=== PATIENT | female | born 1975 | race Caucasian/White ===

== ENCOUNTER → 2017-07-08 | Outpatient (CLI) | payer BC ==
--- NOTE | 2017-07-10 08:02 | MM ---
Reason for exam: screening (asymptomatic). Last mammogram was performed 4 years and 1 month ago. History: Took hormonal contraceptives for 2 years. Physical Findings: A clinical breast exam by your physician is recommended on an annual basis and results should be correlated with mammographic findings. MG 3D Screening Mammo W/Cad Bilateral CC and MLO view(s) were taken. Prior study comparison: June 14, 2013, bilateral digital screening mammo w/CAD. The breast tissue is heterogeneously dense. This may lower the sensitivity of mammography. No significant changes when compared with prior studies. ASSESSMENT: Negative, BI-RAD 1 RECOMMENDATION: Routine screening mammogram of both breasts in 1 year.
== END | disposition home or self-care (01) ==
LOC: RADMAMWWP 13:07
PROVIDERS: ATTEND Family Medicine
DX: Z12.31 Encounter for screening mammogram for malignant neoplasm of breast (principal)
CPT/HCPCS: 77063; G0202

== ENCOUNTER → 2018-09-22 | Outpatient (CLI) | payer BC ==
--- NOTE | 2018-09-23 10:58 | MM ---
Reason for exam: screening (asymptomatic). Last mammogram was performed 1 year and 2 months ago. History: Took hormonal contraceptives for 2 years. Physical Findings: A clinical breast exam by your physician is recommended on an annual basis and results should be correlated with mammographic findings. MG 3D Screening Mammo W/Cad Bilateral CC and MLO view(s) were taken. Prior study comparison: July 08, 2017, bilateral MG 3d screening mammo w/cad. The breast tissue is heterogeneously dense. This may lower the sensitivity of mammography. No significant changes when compared with prior studies. ASSESSMENT: Negative, BI-RAD 1 RECOMMENDATION: Routine screening mammogram of both breasts in 1 year. Manage on a clinical basis with regard to right breast pain.
== END ==
LOC: RADMAMWWP 07:59
PROVIDERS: ATTEND Obstetrics & Gynecology
DX: Z12.31 Encounter for screening mammogram for malignant neoplasm of breast (principal)
CPT/HCPCS: 77063; 77067

== ENCOUNTER → 2019-11-09 | Outpatient (CLI) | payer BC ==
--- NOTE | 2019-11-10 11:17 | MM ---
Reason for exam: screening (asymptomatic). Last mammogram was performed 1 year and 2 months ago. History: Took hormonal contraceptives for 2 years. Physical Findings: A clinical breast exam by your physician is recommended on an annual basis and results should be correlated with mammographic findings. MG 3D Screening Mammo W/Cad Bilateral CC and MLO view(s) were taken. Prior study comparison: September 22, 2018, bilateral MG 3d screening mammo w/cad. July 08, 2017, bilateral MG 3d screening mammo w/cad. The breast tissue is heterogeneously dense. This may lower the sensitivity of mammography. Focal asymmetry upper outer left breast. This finding is changed when compared with previous exams. ASSESSMENT: Incomplete: need additional imaging evaluation, BI-RAD 0 RECOMMENDATION: Special view mammogram of the left breast. If lesion persists on supplemental views, image directed ultrasound is recommended. [facility] will attempt to contact patient to return for supplemental views and ultrasound if indicated.
== END | disposition home or self-care (01) ==
LOC: RADMAMWWP 12:24
PROVIDERS: ATTEND Obstetrics & Gynecology
DX: Z12.31 Encounter for screening mammogram for malignant neoplasm of breast (principal)
CPT/HCPCS: 77063; 77067

== ENCOUNTER → 2019-11-17 | Outpatient (CLI) | payer BC ==
--- NOTE | 2019-11-18 08:47 | MM ---
Reason for exam: additional evaluation requested from abnormal screening. Last mammogram was performed less than 1 month ago. History: Took hormonal contraceptives for 2 years. Physical Findings: Nurse did not find any significant physical abnormalities on exam. MG 3D Work Up W/Cad LT CC and MLO view(s) were taken of the left breast. Prior study comparison: November 09, 2019, bilateral MG 3d screening mammo w/cad. September 22, 2018, bilateral MG 3d screening mammo w/cad. The breast tissue is heterogeneously dense. This may lower the sensitivity of mammography. The previously seen abnormality resolves on additional views and appears as fibroglandular tissue compatible with summation. Left upper outer quadrant asymmetries appear stable from 2017. These results were verbally communicated with the patient and result sheet given to the patient on 11/17/19. ASSESSMENT: Benign, BI-RAD 2 RECOMMENDATION: Return to routine screening mammogram schedule for both breasts.
== END | disposition home or self-care (01) ==
LOC: RADMAMWWP 14:52
PROVIDERS: ATTEND Obstetrics & Gynecology
DX: R92.8 Other abnormal and inconclusive findings on diagnostic imaging of breast (principal)
CPT/HCPCS: 77061; 77065

== ENCOUNTER → 2020-12-21 | Outpatient (CLI) | payer BC ==
--- NOTE | 2020-12-25 11:47 | MM ---
Reason for exam: screening (asymptomatic). Last mammogram was performed 1 year and 1 month ago. History: Took hormonal contraceptives for 2 years. Physical Findings: A clinical breast exam by your physician is recommended on an annual basis and results should be correlated with mammographic findings. MG 3D Screening Mammo W/Cad Bilateral CC and MLO view(s) were taken. Prior study comparison: November 17, 2019, left breast MG 3d work up w/cad LT. November 09, 2019, bilateral MG 3d screening mammo w/cad. The breast tissue is heterogeneously dense. This may lower the sensitivity of mammography. There is no discrete abnormality. ASSESSMENT: Negative, BI-RAD 1 RECOMMENDATION: Routine screening mammogram of both breasts in 1 year.
== END | disposition home or self-care (01) ==
LOC: RADMAMWWP 13:07
PROVIDERS: ATTEND Obstetrics & Gynecology
DX: Z12.31 Encounter for screening mammogram for malignant neoplasm of breast (principal)
CPT/HCPCS: 77063; 77067

== ENCOUNTER → 2021-12-24 | Outpatient (CLI) | payer BC ==
--- NOTE | 2021-12-25 11:48 | MM ---
Reason for exam: screening (asymptomatic). Last mammogram was performed 1 year ago. History: Took hormonal contraceptives for 2 years. Physical Findings: A clinical breast exam by your physician is recommended on an annual basis and results should be correlated with mammographic findings. MG 3D Screening Mammo W/Cad Bilateral CC and MLO view(s) were taken. Prior study comparison: December 21, 2020, bilateral MG 3d screening mammo w/cad. November 17, 2019, left breast MG 3d work up w/cad LT. The breast tissue is heterogeneously dense. This may lower the sensitivity of mammography. There is no discrete abnormality. ASSESSMENT: Negative, BI-RAD 1 RECOMMENDATION: Routine screening mammogram of both breasts in 1 year.
== END | disposition home or self-care (01) ==
LOC: RADMAMWWP 08:54
PROVIDERS: ATTEND Family Medicine
DX: Z12.31 Encounter for screening mammogram for malignant neoplasm of breast (principal)
CPT/HCPCS: 77063; 77067

== ENCOUNTER → 2022-01-15 | Outpatient (CLI) | payer BC ==
--- NOTE | 2022-01-15 14:53 | P.SLEEP ---
History of Present Illness H&P Date: 01/15/22 this is a very pleasant 46-year-old. Patient is coming in for a reevaluation regarding obstructive sleep apnea. Note that the patient was given the diagnosis obstructive sleep apnea approximately 7-8 years ago. At that time, she was 39 years of age and she was and during her 31st week of gestation, the patient was given a sleep study that showed mild obstructive sleep apnea with an AHI of 10. noted the patient had interval worsening of her sleep apnea during REM sleep with an AHI of 40 during REM and her minimal pulse ox was 84%. Subsequently, the patientas given CPAP therapy at a pressure of 6 cm of water. The patient used them machine briefly and over the past 6-7 years, she has not used the machine. Her machine is functional. I checked the machine today and I started the patient has used her machine only 7 out of the past around 365 days and on the days when she hadthe machine on, she averaged around 8.8 hours of sleep and her AHI was down to 2.5. Nevertheless, she did not see any improvement in her symptoms as the patient does not have any major hypersomnia and sleepiness during the day. For now, she is having more so occasional symptoms of insomnia. She typically goes to methadone 10:30 PM, wakes at 6 AM in the morning. On weekends, she tried to sleep slightly longer. She does not take any naps during the day. She sleeps on her back. She does not wake up frequently in the middle of the night. At times, she has difficulties initiating sleep and this is related to some increased anxiety and stress. No sleep paralysis. No hallucinations. No cataplexy. She is fully functional during the day and she carries an [place] score of 3. Note that whil e the origin study was done, the patient used to weigh around 230 pounds and back then she was . Current weight is down to 186. She has mild hypertension which is well-controlled. No 70 coronary artery disease. No other major comorbidities. She denies waking up choking or gasping for air. Occasionally she grinds her teeth. No nocturia. No claustrophobia. No head trauma. No substance abuse. Review of Systems All systems: negative Eyes: denies as per HPI, denies blurred vision, denies bulging eye, denies decreased vision, denies diplopia, denies discharge, denies dry eye, denies irritation, denies itching, denies pain, denies photophobia, denies loss of peripheral vision, denies loss of vision, denies tunnel vision/blind spots Ears: deny: decreased hearing, ear discharge, earache, tinnitus Ears, nose, mouth and throat: Denies headache, Denies sore throat Breasts: absent: as per HPI, change in shape, gynecomastia, masses, nipple discharge, pain, skin changes, swelling Cardiovascular: Reports as per HPI Respiratory: Reports as per HPI Gastrointestinal: Reports as per HPI Genitourinary: Reports as per HPI Menstruation: Reports amenorrhea Musculoskeletal: Reports as per HPI Musculoskeletal: absent: ankle pain, ankle stiffness, ankle swelling Integumentary: Reports as per HPI Neurological: Reports as per HPI Psychiatric: Reports as per HPI Endocrine: Reports as per HPI Hematologic/Lymphatic: Reports as per HPI Allergic/Immunologic: Reports as per HPI Past Medical History Additional Past Medical History / Comment(s): Sleep apneaand this was diagnosed back in 2014 and at time of the diagnoses the patient was . Her AHI was 10. She also has history of tachycardia-bradycardia, and the patient is currently not having any symptoms.she has hypertension, BP is under good control. Obstetric history: She has had 5 vaginal deliveries and 3 spontaneous abortions. This is her ninth and she has had care with me since 10 weeks. A+, abs neg, Rub Imm, RPR NR, Hep B neg, normal anatomy US. normal 1hr GTT. She has been followed with NSTs and growth USs for AMA. History of Any Multi-Drug Resistant Organisms: None Reported Additional Past Surgical History / Comment(s): pyloric stenosis as 1972, right elbow surgical orthopedic repair 1997 Past Psychological History: Depression Additional Psychological History / Comment(s): states hx of some depression but not associatred with deliveries. discussed ppd and evals as needed. verb underst Past Alcohol Use History: None Reported Past Drug Use History: None Reported - Past Family History Mother Additional Family Medical History / Comment(s): mother- sleep apnea and vent tachycard., brother also vent tachycardia Medications and Allergies Home Medications and Allergies Comment(s): labetalol 100 mg 2 tablets a day Home Medications Medication Instructions Recorded Confirmed Type Vit No.124/Iron/Folic 1 tab PO DAILY 04/10/15 04/21/15 History [ Vitamin Tablet] Calcium/Magnesium/Zinc 01/24/15 01/24/15 History [Kbkukoc-Nddlhoyio-Eizr Tablet] Allergies Allergy/AdvReac Type Severity Reaction Status Date / Time No Known Allergies Allergy Verified 01/13/15 11:44 Physical Exam BP is 127/80 with a pulse of 75 respirations 16 and temperature 97.2 and the patient has a saturation of 90% on room air oxygen, her [place] score is at 3, Conference is 15 inches with a body mass index of 30.7 and the temperature is 97.2F and weight is 186 pounds with a height of 5 feet and 5 inches. Gen. appearance the patient is calm and comfortable not in acute distress The patient appeared well nourished and normally developed. Vital signs as documented. Head exam is unremarkable. No scleral icterus or corneal arcus noted. Neck is without jugular venous distension, thyromegaly, or carotid bruits. Carotid upstrokes are brisk bilaterally.the patient has a slight overbite noted on examination. Mallampati class III. Lungs are clear to auscultation and percussion. Cardiac exam reveals the PMI to be normally sized and situated. Rhythm is regular. First and second heart sounds normal. No murmurs, rubs or gallops. Abdominal exam reveals normal bowel sounds, no masses, no organomegaly and no aortic enlargement. Extremities are nonedematous and both femoral and pedal pulses are normal.Examination of the skin revealed no evidence of significant rashes, suspicious appearing nevi or other concerning lesions.Neurologically, the patient is awake and alert and the patient does not have any focal neurological deficit. Cranial nerves are essentially intact. Assessment and Plan Plan: 1 mild obstructive sleep apnea with an AHI of 10 based on a sleep study that was done in 2014. Noted at that time the patient was and [id number] week of gestation and the patient used to weigh 230 pounds. Since then, the patient has lost weight and currently she is down to 186. She has a CPAP machine at home which she hasn't been using and she has been essentially asymptomatic. No major hypersomnia or sleepiness. In fact, the patient has some mild symptoms of sleep onset insomnia. 2 hypertension 3 history of teeth grinding Plan I reviewed the old records including the original polysomnogram that was done on this patient back in 2014 and a CPAP titration I suggested stopping CPAP therapy for now I'm going to evaluate this patient was not at home sleep study to evaluate the presence and severity of sleep apnea My overall suspicion for symptomatically sleep apnea is quite low on this patient. I think is safe to hold treatment Continue optimizing sleep hygiene measures Maintain adequate sleep hygiene and sleep schedule We'll contact the patient with results of the home sleep study and further recommendations are to follow Sleep Note - Sleep Note Sleep Note: Temperature: Pulse Rate: Respiratory Rate: Blood Pressure: SpO2: Height: Weight: BMI: Neck Circumference:
== END ==
LOC: SLEEP 13:50
PROVIDERS: ATTEND Internal Medicine Critical Care Medicine
DX: G47.33 Obstructive sleep apnea (adult) (pediatric) (principal); I10 Essential (primary) hypertension; G47.63 Sleep related bruxism; F32.A Depression, unspecified
CPT/HCPCS: 99211

== ENCOUNTER → 2022-12-25 | Outpatient (CLI) | payer BC ==
--- NOTE | 2022-12-26 09:16 | MM ---
Reason for Exam: Screening (asymptomatic). Last screening mammogram was performed 12 month(s) ago. Patient History: Menarche at age 12. First Full-Term at age 19. Patient used Hormonal Contraceptives for 2 years. Last menstrual period: 11/23/2022 Risk Values: Vielka 5 year model risk: 0.8%. NCI Lifetime model risk: 7.5%. Prior Study Comparison: 11/17/2019 Left Diagnostic Mammogram, [facility]. 12/21/2020 Bilateral Screening Mammogram, [facility]. 12/24/2021 Bilateral Screening Mammogram, [facility]. Tissue Density: The breast tissue is heterogeneously dense. This may lower the sensitivity of mammography. Findings: Analyzed By CAD. There is no suspicious group of microcalcifications or new suspicious mass in either breast. Overall Assessment: Negative, BI-RAD 1 Management: Screening Mammogram of both breasts in 1 year. A clinical breast exam by your physician is recommended on an annual basis and results should be correlated with mammographic findings. Electronically signed and approved by: Lee Fernandse D.O.
== END | disposition home or self-care (01) ==
LOC: RADMAMWWP 07:46
PROVIDERS: ATTEND Family Medicine
DX: Z12.31 Encounter for screening mammogram for malignant neoplasm of breast (principal)
CPT/HCPCS: 77063; 77067

== ENCOUNTER 2023-02-27 07:22 | Day surgery (SDC) | payer BC ==
[~2023-02-27 07:22] MED LIST: LACTATED RINGERS 1,000 ML IV SCH; LIDOCAINE 1% (10MG/ML) FOR IV START INTRADERMA PRN
--- NOTE | 2023-02-27 07:44 | P.GSHP ---
History of Present Illness H&P Date: 02/27/23 CHIEF COMPLAINT: Colon screen HISTORY OF PRESENT ILLNESS: The patient is a 47-year-old female who presents for colon screen. Lower endoscopy was offered for further evaluation and management. PAST MEDICAL HISTORY: Please see list. PAST SURGICAL HISTORY: Please see list. MEDICATIONS: Please see list. ALLERGIES: Please see list. SOCIAL HISTORY: No illicit drug use FAMILY HISTORY: No reports of Crohn disease or ulcerative colitis. REVIEW OF ORGAN SYSTEMS: CONSTITUTIONAL: No reports of fevers or chills. PHYSICAL EXAM: VITAL SIGNS: Stable GENERAL: Well-developed pleasant in no acute distress. HEENT: No scleral icterus. Extraocular movements grossly intact. Moist buccal mucosa. NECK: Supple without lymphadenopathy. CHEST: Unlabored respirations. Equal bilateral excursions. CARDIOVASCULAR: Regular rate and rhythm. Distal 2+ pulses. ABDOMEN: Soft, nontender, nondistended. MUSCULOSKELETAL: No clubbing, cyanosis, or edema. ASSESSMENT: 1. Colon screen. PLAN: 1. Recommend proceeding with a lower endoscopy Past Medical History Past Medical History: Hypertension, Sleep Apnea/CPAP/BIPAP Additional Past Medical History / Comment(s): Sleep apneaand this was diagnosed back in 2014 and at time of the diagnoses the patient was . Her AHI was 10. She also has history of tachycardia-bradycardia, and the patient is currently not having any symptoms.she has hypertension, BP is under good con trol. Obstetric history: She has had 5 vaginal deliveries and 3 spontaneous abortions. This is her ninth and she has had care with ma since 10 weeks. A+, abs neg, Rub Imm, RPR NR, Hep B neg, normal anatomy US. normal 1hr GTT. She has been followed with NSTs and growth USs for AMA. History of Any Multi-Drug Resistant Organisms: None Reported Additional Past Surgical History / Comment(s): right knee arthoplasty. pyloric stenosis as 1972, orif right elbow surgical orthopedic repair 1997 Past Anesthesia/Blood Transfusion Reactions: No Reported Reaction Past Psychological History: No Psychological Hx Reported Smoking Status: Never smoker Past Alcohol Use History: None Reported Past Drug Use History: None Reported - Past Family History Mother Additional Family Medical History / Comment(s): mother- sleep apnea and vent tachycard., brother also vent tachycardia Medications and Allergies Home Medications Medication Instructions Recorded Confirmed Type Labetalol [Trandate] 100 mg PO BID 05/24/23 05/25/23 History Allergies Allergy/AdvReac Type Severity Reaction Status Date / Time No Known Allergies Allergy Verified 02/27/23 07:37
[2023-02-27 07:47] VITALS: TEMP 97.2
[2023-02-27] MEDS ORDERED: PROPOFOL 10 MG/ML 20 ML VIAL IV ONE (08:00)
[2023-02-27] MEDS ORDERED: LIDOCAINE 2% INJ 20 MG/ML (2 ML VIAL) ONE (08:00)
[2023-02-27 08:29] VITALS: RESP 16
--- NOTE | 2023-02-27 08:36 | P.PCN ---
Date of Procedure: 02/27/23 Description of Procedure: PREOPERATIVE DIAGNOSIS: Colonoscopy screening. POSTOPERATIVE DIAGNOSIS: Colonoscopy screening. OPERATION: Colonoscopy to the cecum, ileocecal valve and appendiceal orifice. SURGEON: Juani Moran MD. ANESTHESIA: MAC. INDICATIONS: The patient is a 47-year-old female who presents for colonoscopy screening. Benefits and risks were described and informed consent was obtained. DESCRIPTION OF PROCEDURE: The patient had undergone Sutab prep. The patient had been brought into the operating room and laid in the left lateral decubitus position. After adequate intravenous sedation, the rectum was examined with 2% lidocaine jelly. External hemorrhoids were encountered. The rectal tone was within normal limits. No lesions were palpated in the rectal vault. An Olympus colonoscope was advanced until the cecum, ileocecal valve and appendiceal orifice were clearly viewed. The prep was excellent. No scattered diverticulosis was encountered. No colonic polyps were found. No evidence of focal colitis was found. Retroflexion of the scope demonstrated grade 2 internal hemorrhoids without active bleeding or inflammation. The colon was desufflated. The patient had tolerated the procedure well. Withdrawal time was over 6 minutes. FINDINGS: Aronchick preparation quality scale (1-5) Internal hemorrhoids, grade 2 External prolapsed hemorrhoids, grade 2 No arteriovenous malformations. No adenomatous polyps. No focal colitis. No scattered diverticulosis was encountered. RECOMMENDATIONS: Lower endoscopy in 2032 Plan - Discharge Summary Discharge Rx Participant: No New Discharge Prescriptions: Continue Labetalol [Trandate] 100 mg PO BID Discharge Medication List Labetalol [Trandate] 100 mg PO BID 02/26/23 [History] Follow up Appointment(s)/Referral(s): Juani Moran MD [STAFF PHYSICIAN] - As Needed Patient Instructions/Handouts: Moderate Sedation (GEN) Activity/Diet/Wound Care/Special Instructions: Repeat colonoscopy years2032 Discharge Disposition: HOME SELF-CARE
[2023-02-27 08:42] VITALS: BP 122/83; PULSE 63
== END 2023-02-27 09:49 | disposition home or self-care (01) ==
LOC: ORWHC2ENDO 07:22
PROVIDERS: ATTEND Surgery Plastic and Reconstructive Surgery
DX: Z12.11 Encounter for screening for malignant neoplasm of colon (principal); K64.1 Second degree hemorrhoids; K64.4 Residual hemorrhoidal skin tags; I10 Essential (primary) hypertension; G47.33 Obstructive sleep apnea (adult) (pediatric); I48.91 Unspecified atrial fibrillation; Z98.890 Other specified postprocedural states
CPT/HCPCS: 45378; 81025; J2704; J2001

== ENCOUNTER 2023-06-03 21:54 | Emergency (ER) | payer BC ==
[2023-06-03 22:04] VITALS: TEMP 98.8
[2023-06-03] MEDS ORDERED: SODIUM CHLORIDE 0.9% 1,000 ML IV STA (22:12)
[2023-06-03] MEDS ORDERED: ONDANSETRON 4 MG/2 ML VIAL IVP STA (22:12)
[2023-06-03] MEDS ORDERED: PANTOPRAZOLE 40 MG/10 ML VIAL IVP STA (22:12)
[2023-06-03 22:41] LABS: Basophils % (A) 1 %; Eosinophils # (A) 0.2 k/uL (0-0.7); Eosinophils % (A) 2 %; HCT 39.8 % (34.0-46.0); HGB 13.5 gm/dL (11.4-16.0); Lymphocytes # (A) 1.7 k/uL (1.0-4.8); Lymphocytes % (A) 21 %; MCH 30.2 pg (25.0-35.0); MCHC 33.8 g/dL (31.0-37.0); MCV 89.3 fL (80.0-100.0); Mean Platelet Volume 7.8; Monocytes # (A) 0.6 k/uL (0-1.0); Monocytes % (A) 8 %; Neutrophils # (A) 5.5 k/uL (1.3-7.7); Neutrophils % (A) 67 %; Platelet Count 213 k/uL (150-450); RBC 4.45 m/uL (3.80-5.40); RDW 12.3 % (11.5-15.5); WBC 8.1 k/uL (3.8-10.6)
--- NOTE | 2023-06-03 22:46 | ED ---
General Adult HPI - General Chief complaint: GI Bleed Stated complaint: COVID+, Blood in stool Time Seen by Provider: 06/03/23 22:01 Source: patient, RN notes reviewed, old records reviewed Mode of arrival: ambulatory Limitations: no limitations - History of Present Illness Initial comments: Patient is a 47-year-old female with past medical history remarkable for hypertension, sleep apnea who was recently diagnosed with Covid yesterday presents emergency Department with Covid-like symptoms but also primarily for lower abdominal pain and rectal bleeding. States she noticed lower abdominal pain starting today and somewhat yesterday. Is located across bilateral lower quadrants. It is associated with diarrhea, as well as what patient wheezes bloo d per rectum. Is seeing dark red blood per rectum and a little bit of pink coloration when she wipes. Denies any painful bowel movements. His no history of intra-abdominal surgeries or acute process. Had a clean colonoscopy within the last 5 years. Denies any shortness breath, chest pain. Nurses draw his joint pain. Denies any vaginal discharge or bleeding. Denies any nausea or vomiting. Denies any urinary complaints. Is not on blood thinners. No history of clotting disorders. Presents for further evaluation at this time. - Related Data Home Medications Medication Instructions Recorded Confirmed Labetalol [Trandate] 100 mg PO BID 02/26/23 02/27/23 Allergies Allergy/AdvReac Type Severity Reaction Status Date / Time No Known Allergies Allergy Verified 06/03/23 22:04 Review of Systems ROS Statement: Those systems with pertinent positive or pertinent negative responses have been documented in the HPI. Review of Systems: CONST: Denies fever EYES: Denies blurry vision ENT: Denies nasal congestion C/V: Denies Chest pain RESP: Denies shortness of breath GI: Endorses abdominal pain : Denies dysuria SKIN: Denies rash. MSK: Denies joint pain. NEURO: Denies headache ROS Other: All systems not noted in ROS Statement are negative. Past Medical History Past Medical History: Hypertension, Sleep Apnea/CPAP/BIPAP Additional Past Medical History / Comment(s): Sleep apneaand this was diagnosed back in 2014 and at time of the diagnoses the patient was . Her AHI was 10. She also has history of tachycardia-bradycardia, and the patient is currently not having any symptoms.she has hypertension, BP is under good control. Obstetric history: She has had 5 vaginal deliveries and 3 spontaneous abortions. This is her ninth and she has had care with me since 10 weeks. A+, abs neg, Rub Imm, RPR NR, Hep B neg, normal anatomy US. normal 1hr GTT. She has been followed with NSTs and growth USs for AMA. History of Any Multi-Drug Resistant Organisms: None Reported Additional Past Surgical History / Comment(s): right knee arthoplasty. pyloric stenosis as 1972, orif right elbow surgical orthopedic repair 1997 Past Anesthesia/Blood Transfusion Reactions: No Reported Reaction Past Psychological History: No Psychological Hx Reported Smoking Status: Never smoker Past Alcohol Use History: None Reported Past Drug Use History: None Reported - Past Family History Mother Additional Family Medical History / Comment(s): mother- sleep apnea and vent tachycard., brother also vent tachycardia General Exam - General Exam Comments Initial Comments: General: Appears in no acute distress. HEAD: Normal with no signs of head trauma. EYES: PERRLA, EOMI, conjunctiva normal, no discharge. ENT: Hearing grossly intact, normal oropharynx. RESPIRATORY: Clear breath sounds bilaterally. No wheezes, rales, or rhonchi. C/V: Regular rate and rhythm. S1 and S2 auscultated, no edema, peripheral pulses 2+ and intact throughout ABD: Abdomen soft, nondistended. Mildly tender to palpation bilateral lower quadrants. No guarding. No rebound tenderness. No peritoneal signs. EXT: Normal range of motion, no obvious deformity SKIN: No rashes or lesions observed on exposed skin. NEURO: Alert and oriented 4. Limitations: no limitations Course Vital Signs 06/03/23 06/03/23 22:00 22:51 Temperature 98.8 F Pulse Rate 78 65 Respiratory 18 20 Rate Blood Pressure 136/89 131/85 O2 Sat by Pulse 98 99 Oximetry Medical Decision Making - Medical Decision Making Was pt. sent in by a medical professional or institution (, PA, WAREHOUSE LEAD, urgent care, hospital, or [facility]...) When possible be specific @ -No Did you speak to anyone other than the patient for history (EMS, parent, family, police, friend...)? What history was obtained from this source @ -No Did you review nursing and triage notes (agree or disagree)? Why? @ -I reviewed and agree with nursing and triage notes Were old charts reviewed (outside hosp., previous admission, EMS record, old EKG, old radiological studies, urgent care reports/EKG's, [facility] records)? Report findings @ -No old charts were reviewed Differential Diagnosis (chest pain, altered mental status, abdominal pain women, abdominal pain men, vaginal bleeding, weakness, fever, dyspnea, syncope, headache, dizziness, GI bleed, back pain, seizure, CVA, palpatations, mental health, musculoskeletal)? @ -Differential Abdominal Pain Women: Appendicitis, Cholecystitis, diverticulosis, ischemic bowel, pancreatitis, hepatitis, UTI, gastroenteritis, AAA, incarcerated hernia, bowel obstruction, constipation, inflammatory bowel, hepatitis, peptic ulcer disease, splenic infarction, perforated viscus, vulvitis, ovarian torsion, PID, kidney stone, pl acenta abruption, this is not meant to be an all-inclusive list EKG interpreted by me (3pts min.). @ -None done X-rays interpreted by me (1pt min.). @ -None done CT interpreted by me (1pt min.). @ -Patient's CT imaging reveals colitis but no evidence of diverticulitis or other acute intra-abdominal process. Radiology does note that there is a cyst on the pancreatic head and neoplasm cannot be excluded. They recommend a pancreatic protocol MRI MRCP for further evaluation as well as outpatient workup. U/S interpreted by me (1pt. min.). @ -None done What testing was considered but not performed or refused? (CT, X-rays, U/S, labs)? Why? @ -None What meds were considered but not given or refused? Why? @ -None Did you discuss the management of the patient with other professionals (professionals i.e. , PA, WAREHOUSE LEAD, lab, RT, psych nurse, social media specialist, rim roller operator, teacher, executive vice president and chief financial officer, case supervisor)? Give summary @ -No Was smoking cessation discussed for >3mins.? @ -No Was critical care preformed (if so, how long)? @ -No Were there social determinants of health that impacted care today? How? (Homelessness, low income, unemployed, alcoholism, drug addiction, transportation, low edu. Level, literacy, decrease access to med. care, long term, rehab)? @ -No Was there de-escalation of care discussed even if they declined (Discuss DNR or withdrawal of care, Hospice)? DNR status @ -No What co-morbidities impacted this encounter? (DM, HTN, Smoking, COPD, CAD, Ca ncer, CVA, ARF, Chemo, Hep., AIDS, mental health diagnosis, sleep apnea, morbid obesity)? @ -None Was patient admitted / discharged? Hospital course, mention meds given and route, prescriptions, significant lab abnormalities, going to OR and other pertinent info. @ -Based on the patient's presentation and physical exam, I'm concerned for ac trey abdominal process for current symptoms. Vital signs within acceptable limits. We will perform a rectal exam as well as CT and pelvis and abdominal labs. She already has known Covid and we do not need to retest her. She will be treated with with IV fluids, Zofran, Protonix. She declines analgesic medications at this time. She was in agreement with this plan. Rectal exam performed in the presence of a female staff member. Patient's rectal exam reveals an external hemorrhoid that appeared erythematous with no active bleeding. No gross blood on exam. Light brown stool. Good rectal tone. CT imaging reveals distal colitis that was uncomplicated. Patient also has a cyst in the pancreatic head for which differential includes neoplasm. Outpatient workup recommended by radiology. Patient's labs are remarkable for a normal lactic acid. She is not . Occult blood is positive. Hemoglobin within normal limits. Coags within normal limits. On reevaluation, I updated the patient results of her labs. She expressed understanding. We did discuss results of her CT imaging. She expresses understanding that she is colitis. I also discussed the pancreatic head cystic lesion finding. She expressed understanding that it worse this could be cancer and she requires outpatient workup. She'll follow-up with her PCP regarding arranging this. In regards to the patient's colitis, likely secondary to COVID- 19 infection. Recommended symptomatic care with fluid hydration, bland diet. Patient was in agreement this plan. Urine is still pending and due to the suprapubic tenderness we will wait for urinalysis prior to discharge. Urine analysis is negative. I updated the patient. I answered all questions that she had. She agreed for follow-up to revaluate the pancreatic cyst. Discussed isolation until at least 5 days after symptom onset the Covid. She was in agreement this plan. I instructed the patient to follow up with their PCP in the next 1-3 days. I explained that the patient should return to the emergency department if they e xperience any worsening symptoms. Strict return precautions were discussed with the patient. The patient expressed understanding of these instructions. I answered all questions that the patient had. The patient was discharged home in fair condition with their prescriptions and follow up information. Undiagnosed new problem with uncertain prognosis? @ -Yes, pancreatic cyst of unknown origin Drug Therapy requiring intensive monitoring for toxicity (Heparin, Nitro, Insulin, Cardizem)? @ -No Were any procedures done? @ -No Diagnosis/symptom? @ -COVID-19 infection, uncomplicated colitis, occult rectal bleeding, hemorrhoid Acute, or Chronic, or Acute on Chronic? @ -Acute Uncomplicated (without systemic symptoms) or Complicated (systemic symptoms)? @ -Complicated Side effects of treatment? @ -none Exacerbation, Progression, or Severe Exacerbation] @ -no Poses a threat to life or bodily function? @ -no Diagnosis/symptom? @ -Pancreatic cyst, possible neoplasm Acute, or Chronic, or Acute on Chronic? @ -Unknown Uncomplicated (without systemic symptoms) or Complicated (systemic symptoms)? @ -Uncomplicated Side effects of treatment? @ -[none] Exacerbation, Progression, or Severe Exacerbation] @ -[no] Poses a threat to life or bodily function? @ -Possibly yes. Requires further outpatient nonemergent workup. - Lab Data Result diagrams: 06/03/23 22:23 06/03/23 22:23 Lab Results 06/03/23 06/03/23 06/03/23 Range/Units 22:23 22:23 22:23 WBC 8.1 (3.8-10.6) k/uL RBC 4.45 (3.80-5.40) m/uL Hgb 13.5 (11.4-16.0) gm/dL Hct 39.8 (34.0-46.0) % MCV 89.3 (80.0-100.0) fL MCH 30.2 (25.0-35.0) pg MCHC 33.8 (31.0-37.0) g/dL RDW 12.3 (11.5-15.5) % Plt Count 213 (150-450) k/uL MPV 7.8 Neutrophils % 67 % Lymphocytes % 21 % Monocytes % 8 % Eosinophils % 2 % Basophils % 1 % Neutrophils # 5.5 (1.3-7.7) k/uL Lymphocytes # 1.7 (1.0-4.8) k/uL Monocytes # 0.6 (0-1.0) k/uL Eosinophils # 0.2 (0-0.7) k/uL Basophils # 0.0 (0-0.2) k/uL PT 10.4 (9.0-12.0) sec INR 1.0 (<1.2) APTT 27.9 (22.0-30.0) sec Sodium 136 L (137-145) mmol/L Potassium 4.0 (3.5-5.1) mmol/L Chloride 106 (98-107) mmol/L Carbon Dioxide 21 L (22-30) mmol/L Anion Gap 9 mmol/L BUN 11 (7-17) mg/dL Creatinine 0.60 (0.52-1.04) mg/dL Est GFR (CKD-EPI)AfAm >90 (>60 ml/min/1.73 sqM) Est GFR (CKD-EPI)NonAf >90 (>60 ml/min/1.73 sqM) Glucose 103 H (74-99) mg/dL Plasma Lactic Acid Jackson (0.7-2.0) mmol/L Calcium 8.8 (8.4-10.2) mg/dL Total Bilirubin 1.2 (0.2-1.3) mg/dL AST 25 (14-36) U/L ALT 20 (4-34) U/L Alkaline Phosphatase 54 (38-126) U/L Total Protein 7.3 (6.3-8.2) g/dL Albumin 4.3 (3.5-5.0) g/dL Amylase 43 (30-110) U/L Lipase 120 (23-300) U/L HCG, Qual Urine Color Urine Appearance (Clear) Urine pH (5.0-8.0) Ur Specific [place] (1.001-1.035) Urine Protein (Negative) Urine Glucose (UA) (Negative) Urine Ketones (Negative) Urine Blood (Negative) Urine Nitrite (Negative) Urine Bilirubin (Negative) Urine Urobilinogen (<2.0) mg/dL Ur Leukocyte Esterase (Negative) Stool Occult Blood (Negative) 06/03/23 06/03/23 06/03/23 Range/Units 22:23 22:23 22:59 WBC (3.8-10.6) k/uL RBC (3.80-5.40) m/uL Hgb (11.4-16.0) gm/dL Hct (34.0-46.0) % MCV (80.0-100.0) fL MCH (25.0-35.0) pg MCHC (31.0-37.0) g/dL RDW (11.5-15.5) % Plt Count (150-450) k/uL MPV Neutrophils % % Lymphocytes % % Monocytes % % Eosinophils % % Basophils % % Neutrophils # (1.3-7.7) k/uL Lymphocytes # (1.0-4.8) k/uL Monocytes # (0-1.0) k/uL Eosinophils # (0-0.7) k/uL Basophils # (0-0.2) k/uL PT (9.0-12.0) sec INR (<1.2) APTT (22.0-30.0) sec Sodium (137-145) mmol/L Potassium (3.5-5.1) mmol/L Chloride (98-107) mmol/L Carbon Dioxide (22-30) mmol/L Anion Gap mmol/L BUN (7-17) mg/dL Creatinine (0.52-1.04) mg/dL Est GFR (CKD-EPI)AfAm (>60 ml/min/1.73 sqM) Est GFR (CKD-EPI)NonAf (>60 ml/min/1.73 sqM) Glucose (74-99) mg/dL Plasma Lactic Acid Jackson 0.7 (0.7-2.0) mmol/L Calcium (8.4-10.2) mg/dL Total Bilirubin (0.2-1.3) mg/dL AST (14-36) U/L ALT (4-34) U/L Alkaline Phosphatase (38-126) U/L Total Protein (6.3-8.2) g/dL Albumin (3.5-5.0) g/dL Amylase (30-110) U/L Lipase (23-300) U/L HCG, Qual Not Detected Urine Color Urine Appearance (Clear) Urine pH (5.0-8.0) Ur Specific [place] (1.001-1.035) Urine Protein (Negative) Urine Glucose (UA) (Negative) Urine Ketones (Negative) Urine Blood (Negative) Urine Nitrite (Negative) Urine Bilirubin (Negative) Urine Urobilinogen (<2.0) mg/dL Ur Leukocyte Esterase (Negative) Stool Occult Blood Positive H (Negative) 06/04/23 Range/Units 00:12 WBC (3.8-10.6) k/uL RBC (3.80-5.40) m/uL Hgb (11.4-16.0) gm/dL Hct (34.0-46.0) % MCV (80.0-100.0) fL MCH (25.0-35.0) pg MCHC (31.0-37.0) g/dL RDW (11.5-15.5) % Plt Count (150-450) k/uL MPV Neutrophils % % Lymphocytes % % Monocytes % % Eosinophils % % Basophils % % Neutrophils # (1.3-7.7) k/uL Lymphocytes # (1.0-4.8) k/uL Monocytes # (0-1.0) k/uL Eosinophils # (0-0.7) k/uL Basophils # (0-0.2) k/uL PT (9.0-12.0) sec INR (<1.2) APTT (22.0-30.0) sec Sodium (137-145) mmol/L Potassium (3.5-5.1) mmol/L Chloride (98-107) mmol/L Carbon Dioxide (22-30) mmol/L Anion Gap mmol/L BUN (7-17) mg/dL Creatinine (0.52-1.04) mg/dL Est GFR (CKD-EPI)AfAm (>60 ml/min/1.73 sqM) Est GFR (CKD-EPI)NonAf (>60 ml/min/1.73 sqM) Glucose (74-99) mg/dL Plasma Lactic Acid Jackson (0.7-2.0) mmol/L Calcium (8.4-10.2) mg/dL Total Bilirubin (0.2-1.3) mg/dL AST (14-36) U/L ALT (4-34) U/L Alkaline Phosphatase (38-126) U/L Total Protein (6.3-8.2) g/dL Albumin (3.5-5.0) g/dL Amylase (30-110) U/L Lipase (23-300) U/L HCG, Qual Urine Color Yellow Urine Appearance Clear (Clear) Urine pH 5.5 (5.0-8.0) Ur Specific [place] >1.050 H (1.001-1.035) Urine Protein Negative (Negative) Urine Glucose (UA) Negative (Negative) Urine Ketones Negative (Negative) Urine Blood Negative (Negative) Urine Nitrite Negative (Negative) Urine Bilirubin Negative (Negative) Urine Urobilinogen <2.0 (<2.0) mg/dL Ur Leukocyte Esterase Negative (Negative) Stool Occult Blood (Negative) Disposition Clinical Impression: COVID-19, Colitis, Pancreatic cyst, Rectal bleed, Hemorrhoid Disposition: HOME SELF-CARE Condition: Fair Instructions (If sedation given, give patient instructions): Rectal Bleeding (ED), Colitis (ED), COVID-19 (Coronavirus Disease 2019) (ED) Additional Instructions: Follow up with PCP for outpatient workup for pancreatic head cyst. Follow up within the next 2-3 days or as soon as possible. Is patient prescribed a controlled substance at d/c from ED?: No Referrals: Tomas Alvarez MD [Primary Care Provider] - 1-2 days Time of Disposition: 01:39
[2023-06-03 22:58] LABS: Partial Thromboplastin Time 27.9 sec (22.0-30.0); Prothrombin Time 10.4 sec (9.0-12.0)
[2023-06-03 23:01] LABS: ALT 20 U/L (4-34); AST 25 U/L (14-36); African American GFR (CKD) >90 (>60 ml/min/1.73 sqM); Albumin 4.3 g/dL (3.5-5.0); Alkaline Phosphatase 54 U/L (38-126); Amylase 43 U/L (30-110); Anion Gap 9 mmol/L; Blood Urea Nitrogen 11 mg/dL (7-17); Calcium 8.8 mg/dL (8.4-10.2); Carbon Dioxide 21 mmol/L (22-30); Chloride 106 mmol/L (98-107); Glucose 103 mg/dL (74-99); Lipase 120 U/L (23-300); Non-African American GFR(CKD) >90 (>60 ml/min/1.73 sqM); Sodium 136 mmol/L (137-145); Total Bilirubin 1.2 mg/dL (0.2-1.3); Total Protein 7.3 g/dL (6.3-8.2)
--- NOTE | 2023-06-03 23:44 | CT ---
EXAMINATION TYPE: CT abdomen pelvis w con DATE OF EXAM: 06/03/2023 HISTORY: ABD PAIN CT DLP: 1268mGycm Automated Exposure Control for Dose Reduction was Utilized. CONTRAST: CT scan of the abdomen and pelvis is performed with IV Contrast, patient injected with 100 mL of Isov ue 300. COMPARISON: None. FINDINGS: LUNG BASES: No significant abnormality is appreciated. LIVER/GB: Liver is diffusely low dense consistent with fatty infiltrative hepatocellular disease. PANCREAS: There is 1.5 cm thin-walled cyst or cystic lesion in the inferior pancreatic head coronal i mage 42 corresponding to axial image 35. SPLEEN: No significant abnormality is seen. ADRENALS: No significant abnormality is seen. KIDNEYS: No significant abnormality is seen. BOWEL: Slightly suboptimal evaluation without enteric contrast. No abnormal small or large bowel dila tation is seen. Moderate wall thickening beginning near the splenic flexure involving entire left col on extending into the proximal sigmoid colon with mild wall thickening throughout the sigmoid colon. Mild vasa prominence and fat stranding in the left lower quadrant is seen. No free air or mesenteric air. UTERUS/ADNEXA: Anteverted uterus. LYMPH NODES: No greater than 1cm abdominal or pelvic lymph nodes are appreciated. OSSEOUS STRUCTURES: No significant abnormality is seen. OTHER: Tiny fat-containing umbilical hernia sagittal image 59. IMPRESSION: 1. Findings consistent with an uncomplicated distal colitis involving the left and proximal sigmoid c olon under distal left colon. Differential includes infectious and inflammatory etiologies, ischemic etiology thought much less likely. 2. Nonspecific 1.5 cm cystic lesion in the inferior pancreatic head, cystic neoplasm cannot be exclud ed. Advise nonemergent pancreatic protocol MRI/MRCP without and with contrast to further evaluate and characterize and appropriate lab work up.
[2023-06-04 01:33] LABS: Appearance,Urine Clear (Clear); Bilirubin,Urine Negative (Negative); Blood,Urine Negative (Negative); Glucose,Urine (UA) Negative (Negative); Ketones,Urine Negative (Negative); Leukocyte Esterase,Urine Negative (Negative); Nitrite,Urine Negative (Negative); PH, Urine 5.5 (5.0-8.0); Protein,Urine Negative (Negative); Urobilinogen,Urine <2.0 mg/dL (<2.0)
[2023-06-04 01:40] LABS: Color,Urine Yellow; Specific Gravity,Urine >1.050 (1.001-1.035)
[2023-06-04 02:00] VITALS: BP 131/94; PULSE 63; RESP 18
== END 2023-06-04 01:57 | disposition home or self-care (01) ==
LOC: EC 21:54
DX: K52.9 Noninfective gastroenteritis and colitis, unspecified (principal); K64.9 Unspecified hemorrhoids; K86.2 Cyst of pancreas; U07.1 COVID-19; I10 Essential (primary) hypertension; Z79.899 Other long term (current) drug therapy
CPT/HCPCS: 36415; 80053; 82150; 83605; 83690; 85025; 85610; 85730; 82272; 81003; 84703; 74177; 99285; 96374; 96375; 96361 ×3; J2405; C9113; Q9967

== ENCOUNTER → 2023-06-27 | Outpatient (CLI) | payer BC ==
--- NOTE | 2023-06-27 09:51 | MR ---
EXAMINATION: MRI/MRCP ABDOMEN. DATE OF EXAMINATION: 07/27/2023. COMPARISON: CT abdomen and pelvis on 06/03/2023. INDICATION: Follow-up pancreatic cystic lesion. PROCEDURE: Multiplanar, multisequence images of the abdomen were obtained without contrast with MRCP imaging.. FINDINGS: LOWER CHEST : The visualized lung bases are clear. There are no pleural or pericardial effusions. ABDOMEN: Liver and Biliary system: Normal. Adrenal glands: Normal. Kidneys and ureters: There are no renal stones or hydronephrosis. No ureteral stones are present.. Spleen: Normal. Pancreas: There is a 1.3 cm cystic area within the head of the pancreas. This does not clearly commu nicate with the pancreatic duct. There is no pancreatic ductal dilation. No solid pancreatic masses s een. Gallbladder: Normal. Lymph nodes, Peritoneum and mesentery: There is no mesenteric or retroperitoneal lymphadenopathy. Gastrointestinal tract: No definitive bowel abnormalities are seen. Aorta/IVC: No aortic aneurysm.. IVC normal. Abdominal wall: Normal. PELVIS: Fluid: There is no free fluid in the pelvis. Lymph Nodes: There is no pelvic or inguinal lymphadenopathy.. Urinary bladder: Normal. BONES: There are no osseous destructive lesions.. ADDITIONAL SIGNIFICANT FINDINGS: None. IMPRESSION: 1. Cystic lesion within the head of the pancreas. This may represent a small pancreatic cyst, mild bu lge intraductal papillary mucinous neoplasm. Follow-up in one year is recommended. 2. No acute process otherwise seen.
== END | disposition home or self-care (01) ==
LOC: RADMRIMAIN 07:54
PROVIDERS: ATTEND Family Medicine
DX: K86.89 Other specified diseases of pancreas (principal); K86.2 Cyst of pancreas
CPT/HCPCS: 74181

== ENCOUNTER → 2023-09-18 | Outpatient (CLI) | payer BC ==
[2023-09-18 15:18] LABS: Basophils # (A) 0.07 X 10*3/uL (0.00-0.10); Basophils % (A) 1.1 %; Eosinophils % (A) 3.2 %; HCT 39.9 % (37.2-46.3); Lymphocytes # (A) 1.99 X 10*3/uL (0.90-5.00); Lymphocytes % (A) 31.4 %; MCH 29.3 pg (27.0-32.0); MCHC 32.6 g/dL (32.0-37.0); MCV 89.9 FL (80.0-97.0); Mean Platelet Volume 10.1 FL (9.5-12.2); Monocytes % (A) 9.5 %; NRBC Per 100 WBC 0 X 10*3/uL (0.00-0.01); Neutrophils # (A) 3.47 X 10*3/uL (1.80-7.70); Neutrophils % (A) 54.6 %; Platelet Count 299 X 10*3/uL (140-440); RBC 4.44 X 10*6/uL (4.10-5.20); RDW 11.8 % (11.5-14.5); WBC 6.34 X 10*3/uL (4.50-10.00)
[2023-09-18 15:44] LABS: Chol/HDL Ratio 3.49 Ratio; LDL Cholesterol,Calculated 141.3 mg/dL (0.0-131.0)
[2023-09-18 15:45] LABS: ALT 19 U/L (8-44); AST 17 U/L (13-35); Albumin 4.7 g/dL (3.8-4.9); Albumin/Globulin Ratio 1.96 Ratio (1.60-3.17); Alkaline Phosphatase 70 U/L (41-126); BUN/Creat Ratio 21.86 Ratio (12.00-20.00); Blood Urea Nitrogen 15.3 mg/dL (9.0-27.0); Carbon Dioxide 26.4 mmol/L (21.6-31.8); Chloride 103 mmol/L (96-109); Globulin 2.4 g/dL (1.6-3.3); Glucose 86 mg/dL (70-110); Potassium 4.5 mmol/L (3.5-5.5); Sodium 141 mmol/L (135-145); T4, Free (Free Thyroxine) 0.95 ng/dL (0.80-1.80); Total Bilirubin 1.2 mg/dL (0.3-1.2); Total Protein 7.1 g/dL (6.2-8.2)
[2023-09-18 15:53] LABS: Follicle Stimulating Hormone 43.9 mIU/mL; Luteinizing Hormone 15.7 mIU/mL
== END | disposition home or self-care (01) ==
LOC: LABWHC1 10:30
PROVIDERS: ATTEND Student in an Organized Health Care Education/Training Program
DX: Z00.00 Encounter for general adult medical examination without abnormal findings (principal); Z13.220 Encounter for screening for lipoid disorders; Z13.29 Encounter for screening for other suspected endocrine disorder; N92.6 Irregular menstruation, unspecified; R23.2 Flushing
CPT/HCPCS: 36415; 80053; 80061; 83001; 83002; 84439; 84443; 85025

== ENCOUNTER → 2023-12-05 | Outpatient (CLI) | payer BC ==
--- NOTE | 2023-12-06 10:54 | MR ---
EXAMINATION TYPE: MR pancreas wo/w con DATE OF EXAM: 12/05/2023 10:14 AM CLINICAL INDICATION:Female, 48 years old with history of K86.2 Cyst of Pancreas; PHH, F/U Pancreatic lesion COMPARISON: MRCP 06/27/2023, CT 06/03/2023 TECHNIQUE: Multiplanar multi-sequence imaging was performed without contrast. Post contrast imaging was performed. Post IV contrast subtraction images were also submitted for review. IV Contrast: 8.5 cc Gadavist FINDINGS: LOWER CHEST: No gross irregularity. ABDOMEN Liver: No evidence for or cirrhosis. Signal dropout on chemical shift of phase imaging. There is a hi gh T2 signal arterial phase enhancing lesion. There is central low T1 signal within this lesion with signal dropout on chemical shift of phase imaging. On delayed imaging it is nearly isointense to back ground liver. Gallbladder and Bile ducts: No evidence for ductal dilation, or biliary stricture or evidence of chol edocholithiasis. The gallbladder is within normal limits. Pancreas: No ductal dilation. No evidence for solid mass. Stable pancreatic head cystic lesion measur ing 20 x 11 mm. No abnormal postcontrast enhancement. Spleen: Normal for size. Adrenal glands: Unremarkable. Kidneys: No evidence for obstructive uropathy. No suspicious renal masses. Scattered high T2 signal c ysts. Stomach and Bowel: No evidence for bowel wall thickening or evidence for obstruction. Peritoneum: No evidence of pneumoperitoneum or free fluid. Vasculature: No aortic aneurysm. Musculoskeletal: The osseous structures appear intact. Lymph Nodes: No gross evidence for lymphadenopathy. Abdominal wall: Unremarkable. IMPRESSION: 1. Stable pancreatic head cystic lesion possibly relating to side branch intraductal papillary mucin ous neoplasm. Surveillance imaging one year recommended. 2. Right hepatic lobe lesion favored represent benign etiology such as hepatic adenoma versus focal nodular aplasia. Stable in size from 06/03/2023.
== END | disposition home or self-care (01) ==
LOC: RADMRIMAIN 09:06
PROVIDERS: ATTEND Internal Medicine Gastroenterology
DX: K86.2 Cyst of pancreas (principal); K76.89 Other specified diseases of liver
CPT/HCPCS: 74183; A9585

== ENCOUNTER → 2023-12-30 | Outpatient (CLI) | payer BC ==
--- NOTE | 2024-01-02 10:04 | MM ---
Reason for Exam: Screening (asymptomatic). Last screening mammogram was performed 12 month(s) ago. Patient History: Menarche at age 12. First Full-Term at age 19. Patient used Hormonal Contraceptives for 2 years. Risk Values: Vielka 5 year model risk: 0.8%. NCI Lifetime model risk: 7.4%. Prior Study Comparison: 12/21/2020 Bilateral Screening Mammogram, [facility]. 12/24/2021 Bilateral Screening Mammogram, [facility]. 12/25/2022 Bilateral MG 3D screening mammo w/cad, [facility]. Tissue Density: The breasts are heterogeneously dense, which may obscure small masses. Findings: Analyzed By CAD. There is no suspicious group of microcalcifications or new suspicious mass in either breast. Overall Assessment: Benign, BI-RAD 2 Management: Screening Mammogram of both breasts in 1 year. . Patient should continue monthly self-breast exams. A clinical breast exam by your physician is recommended on an annual basis. This exam should not preclude additional follow-up of suspicious palpable abnormalities. Note on Vielka scores and lifetime risk: 1. A Vielka score greater than 3% is considered moderate risk. If this is the case, consider specialist referral to assess eligibility for a risk reducing agent. 2. If overall lifetime risk for the development of breast cancer is 20% or higher, the patient may qualify for future screening with alternating mammogram and breast MRI. Electronically signed and approved by: Robbin Garza M.D. Radiologis
== END | disposition home or self-care (01) ==
LOC: RADMAMWWP 08:07
PROVIDERS: ATTEND Family Medicine
DX: Z12.31 Encounter for screening mammogram for malignant neoplasm of breast (principal)
CPT/HCPCS: 77063; 77067

== ENCOUNTER → 2024-06-09 | Outpatient (CLI) | payer BC ==
--- NOTE | 2024-06-09 10:14 | MR ---
EXAMINATION TYPE: MR pancreas / mrcp wo/w con DATE OF EXAM: 06/09/2024 7:08 AM INDICATION: Patient age:Female; 48 years old; Reason for study: D49.0 NEOPLASM OF UNSPECIFIED BEHAVIOR OF DIGESTIV; PHH. COMPARISON: MR pancreas 12/05/2023, MR and MRCP 06/25/2023, CT abdomen and pelvis 06/03/2023. TECHNIQUE: Multiplanar multi-sequence imaging was performed without and with IV contrast. The patie nt was given 9 ccs of Gadavist intravenously and dynamic imaging was performed. Post IV contrast subt raction images were also submitted for review. FINDINGS: LOWER CHEST: No gross irregularity. ABDOMEN Liver: Fatty infiltration on out of phase imaging. Stable high T2 signal arterial enhancing lesion wi thin the right hepatic lobe measuring 1.2 cm (series 601, image 45). Gallbladder and Bile ducts: Unremarkable. No filling defects identified. No evidence for strictures. The common bile duct measures 5 mm in the pancreatic head. Pancreas: No duct dilatation. Stable pancreatic head cystic lesion measuring 1.9 x 1.2 cm (series 301 , image 17), previously 2.0 x 1.1 cm. No abnormal postcontrast enhancement. Spleen: Unremarkable. Adrenal glands: Unremarkable. Kidneys: No hydronephrosis or suspicious enhancing renal mass. Scattered high T2 signal subcentimeter cysts. Stomach and Bowel: Unremarkable as visualized. Peritoneum: No evidence of pneumoperitoneum, free fluid, or adenopathy. Vasculature: Unremarkable. No aortic aneurysm. Abdominal wall: Unremarkable. Musculoskeletal: The osseous structures appear intact. IMPRESSION: 1. 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 No worrisome features or high risk stigmata. Follow-up MRI in one year is recommended. 2. Stable right hepatic lobe lesion favored to represent a benign etiology such as a flash filling he mangioma. 3. Hepatic steatosis.
== END | disposition home or self-care (01) ==
LOC: RADMRIMAIN 06:08
PROVIDERS: ATTEND Surgery
DX: D49.0 Neoplasm of unspecified behavior of digestive system
CPT/HCPCS: 74183

== ENCOUNTER → 2024-07-13 | Outpatient (CLI) | payer BC ==
[2024-07-13 15:19] LABS: Basophils # (A) 0.05 X 10*3/uL (0.00-0.10); Basophils % (A) 0.8 %; Eosinophils % (A) 3.2 %; HGB 12.6 g/dL (12.0-15.0); Lymphocytes # (A) 1.78 X 10*3/uL (0.90-5.00); Lymphocytes % (A) 28.3 %; MCH 29.4 pg (27.0-32.0); MCHC 32.3 g/dL (32.0-37.0); MCV 90.9 FL (80.0-97.0); Monocytes # (A) 0.61 X 10*3/uL (0.20-1.00); Monocytes % (A) 9.7 %; NRBC Per 100 WBC 0 X 10*3/uL (0.00-0.01); Neutrophils # (A) 3.62 X 10*3/uL (1.80-7.70); Neutrophils % (A) 57.7 %; Platelet Count 290 X 10*3/uL (140-440); RBC 4.29 X 10*6/uL (4.10-5.20); RDW 11.9 % (11.5-14.5); WBC 6.28 X 10*3/uL (4.50-10.00)
[2024-07-13 15:51] LABS: Testosterone <10.00 ng/dL (7.00-45.62)
[2024-07-13 15:53] LABS: Estradiol <20.0 pg/mL
[2024-07-13 15:57] LABS: Progesterone 0.1 ng/mL
[2024-07-13 15:58] LABS: Follicle Stimulating Hormone 51.1 mIU/mL
== END | disposition home or self-care (01) ==
LOC: LABWHC1 09:09
PROVIDERS: ATTEND Obstetrics & Gynecology
DX: F41.9 Anxiety disorder, unspecified (principal); N92.6 Irregular menstruation, unspecified; R68.82 Decreased libido
CPT/HCPCS: 36415; 82306; 82670; 83001; 84144; 84403; 84443; 85025; 86376; 86800

== ENCOUNTER → 2024-09-14 | Outpatient (CLI) | payer BC ==
[2024-09-14 15:51] LABS: HCT 39.1 % (37.2-46.3); HGB 12.5 g/dL (12.0-15.0); MCH 29.3 pg (27.0-32.0); MCV 91.8 FL (80.0-97.0); Mean Platelet Volume 10.3 FL (9.5-12.2); NRBC Per 100 WBC 0 X 10*3/uL (0.00-0.01); Platelet Count 295 X 10*3/uL (140-440); RBC 4.26 X 10*6/uL (4.10-5.20); RDW 11.8 % (11.5-14.5); WBC 5.95 X 10*3/uL (4.50-10.00)
[2024-09-14 18:36] LABS: ALT 16 U/L (8-44); AST 14 U/L (13-35); Albumin 4.4 g/dL (3.8-4.9); Alkaline Phosphatase 62 U/L (41-126); Calcium 9.5 mg/dL (8.7-10.3); Carbon Dioxide 26.8 mmol/L (21.6-31.8); Chloride 104 mmol/L (96-109); Chol/HDL Ratio 3.69 Ratio; Globulin 2.2 g/dL (1.6-3.3); Glucose 92 mg/dL (70-110); LDL Cholesterol,Calculated 128.4 mg/dL (0.0-131.0); Potassium 4.5 mmol/L (3.5-5.5); Sodium 141 mmol/L (135-145); T4, Free (Free Thyroxine) 0.93 ng/dL (0.80-1.80); Total Bilirubin 0.9 mg/dL (0.3-1.2); Total Protein 6.6 g/dL (6.2-8.2)
== END | disposition home or self-care (01) ==
LOC: LABWHC1 08:00
PROVIDERS: ATTEND Family Medicine
DX: Z00.00 Encounter for general adult medical examination without abnormal findings (principal); I10 Essential (primary) hypertension; R53.83 Other fatigue
CPT/HCPCS: 36415; 80053; 80061; 82306; 84439; 84443; 85027; 86376; 86800

== ENCOUNTER 2025-01-05 08:13 | Day surgery (SDC) | payer BC ==
[2025-01-03 16:13] VITALS: BMI 31.4
--- NOTE | 2025-01-05 08:35 | P.GSHP ---
History of Present Illness H&P Date: 01/05/25 CHIEF COMPLAINT: Esophageal stricture HISTORY OF PRESENT ILLNESS: The patient is a 49-year-old female who presents reports dysphagia. Upper endoscopy was offered for further evaluation and management. PAST MEDICAL HISTORY: Please see list. PAST SURGICAL HISTORY: Please see list. MEDICATIONS: Please see list. ALLERGIES: Please see list. SOCIAL HISTORY: No illicit drug use FAMILY HISTORY: No reports of Crohn disease or ulcerative colitis. REVIEW OF ORGAN SYSTEMS: CONSTITUTIONAL: No reports of fevers or chills. GI: Denies any blood in stools or constipation. PHYSICAL EXAM: VITAL SIGNS: Stable GENERAL: Well-developed and pleasant in no acute distress. HEENT: No scleral icterus. Extraocular movements grossly intact. Moist buccal mucosa. NECK: Supple without lymphadenopathy. CHEST: Unlabored respirations. Equal bilateral excursions. CARDIOVASCULAR: Regular rate and rhythm. Distal 2+ pulses. ABDOMEN: Soft, nondistended. MUSCULOSKELETAL: No clubbing, cyanosis, or edema. ASSESSMENT: 1. Esophageal stricture PLAN: 1. Recommend proceeding with an upper endoscopy with rigid dilators. Past Medical History Past Medical History: GERD/Reflux, Hypertension, Sleep Apnea/CPAP/BIPAP Additional Past Medical History / Comment(s): Pre-cancerous lesion on pancreas- condition monitored yearly w/ MRI. Influenza B 2 weeks ago, symptoms resolved. Sleep apnea diagnosed in 2014 while . Does not use Cpap. Hx of tachycardia-bradycardia. Clinically post-menopausal per labs. Obstetric history: She has had 5 vaginal deliveries and 3 spontaneous abortions. History of Any Multi-Drug Resistant Organisms: None Reported Additional Past Surgical History / Comment(s): R knee arthoplasty. Pyloric stenosis as 1972, orif R elbow surgical orthopedic repair 1997; colonoscopy in the past. Past Anesthesia/Blood Transfusion Reactions: No Reported Reaction Additional Past Anesthesia/Blood Transfusion Reaction / Comment(s): No hx of blood tranfusion Smoking Status: Never smoker - Past Family History Mother Additional Family Medical History / Comment(s): mother- sleep apnea and atrial tachycardia, brother also atrial tachycardia Medications and Allergies Home Medications Medication Instructions Recorded Confirmed Type Labetalol [Trandate] 100 mg PO BID 02/26/23 01/03/25 History Ascorbic Acid [Vitamin C] 500 mg PO DAILY 01/03/25 01/03/25 History Cholecalciferol [Vitamin D3 (25 25 mcg PO DAILY 01/03/25 01/03/25 History Mcg = 1000 Iu)] [place]-3/Dha/Epa/Fish Oil [Fish Oil 2 dose PO DAILY 01/03/25 01/03/25 History 1,000 mg Softgel] Vitamin D3/Vitamin K2 (Mk4) 1 each PO DAILY 01/03/25 01/03/25 History [Vitamin K2 Plus D3 Tablet] Zinc Gluconate [Zinc] 50 mg PO DAILY 01/03/25 01/03/25 History Allergies Allergy/AdvReac Type Severity Reaction Status Date / Time medical tape Allergy Rash/Hives Uncoded 01/05/25 08:34
[2025-01-05 08:48] VITALS: TEMP 97.4
[2025-01-05] MEDS: LACTATED RINGERS 1,000 ML IV SCH (08:55)
[2025-01-05] MEDS: IV FLUID CONTINUATION 1,000 ML IV ONE ×2 (08:56→08:58)
[2025-01-05] MEDS ORDERED: PROPOFOL 10 MG/ML 20 ML VIAL IV ONE (08:59)
[2025-01-05] MEDS ORDERED: LIDOCAINE 2% (PF) 20 MG/ML 5 ML VIAL ONE (08:59)
[2025-01-05 09:24] VITALS: RESP 14
--- NOTE | 2025-01-05 09:35 | P.PCN ---
Date of Procedure: 01/05/25 Description of Procedure: PREOPERATIVE DIAGNOSIS: Dysphagia Atypical imaging for pancreatic malignancy POSTOPERATIVE DIAGNOSIS: Upper esophageal stenosis Diaphragmatic hiatal hernia Gastritis OPERATION: Esophagogastroduodenoscopy with rigid dilator over the guidewire 54 Fr with dilation Esophagogastroduodenoscopy with cold forceps biopsies stomach/antrum, esophagus, duodenum SURGEON: Juani Moran MD ANESTHESIA: MAC. INDICATIONS: The patient is a 49-year-old female who presents with dysphagia. Benefits and risks of the procedure were described. Informed consent was obtained. DESCRIPTION: The patient was brought into the endoscopy suite and laid in the left lateral decubitus position. After a timeout was confirmed, the procedure was initiated. An Olympus gastroscope was passed into the posterior oropharynx where an upper esophageal stenosis was identified. The scope was passed down to the distal esophagus. To address the upper esophageal stenosis, rigid dilator over guidewire was selected. Next using an Ecuadorean rigid dilator, a guidewire was placed through the gastroscope. Next the scope was withdrawn. A 54-Wolof rigid Ecuadorean dilator was passed carefully along the posterior oropharynx to 45 cm and left in place for 2-3 minutes stretch. The dilator was withdrawn including the guidewire. The scope was reentered along the posterior oropharynx with no findings of full- thickness tear of the upper esophageal sphincter. Additional findings below. Within the stomach, gastritis along the body of the stomach with cold forceps biopsies obtained. The lower esophageal valve was evaluated with Hill grade 2 lower esophageal valve. LA grade A erosive esophagitis was identified. No full-thickness injury was encountered. The GI tract was desufflated. The patient tolerated the procedure well. FINDINGS: Upper esophageal stenosis dilated 54-Wolof rigid dilator Diaphragmatic hiatus at 35 cm from the incisors Squamocolumnar junction 36 cm from the incisors. Diaphragmatic hiatal hernia, 1 cm Gastritis along the gastric body, biopsies obtained Duodenum with biopsies obtained LA grade A erosive esophagitis, biopsies obtained Hill grade 2 lower esophageal valve. RECOMMENDATIONS: Upper endoscopy as needed Plan - Discharge Summary Discharge Rx Participant: No New Discharge Prescriptions: Continue Zinc Gluconate [Zinc] 50 mg PO DAILY [place]-3/Dha/Epa/Fish Oil [Fish Oil 1,000 mg Softgel] 2 dose PO DAILY Cholecalciferol [Vitamin D3 (25 Mcg = 1000 Iu)] 25 mcg PO DAILY Labetalol [Trandate] 100 mg PO BID Ascorbic Acid [Vitamin C] 500 mg PO DAILY Vitamin D3/Vitamin K2 (Mk4) [Vitamin K2 Plus D3 Tablet] 1 each PO DAILY Discharge Medication List Labetalol [Trandate] 100 mg PO BID 02/26/23 [History] Ascorbic Acid [Vitamin C] 500 mg PO DAILY 01/03/25 [History] Cholecalciferol [Vitamin D3 (25 Mcg = 1000 Iu)] 25 mcg PO DAILY 01/03/25 [History] [place]-3/Dha/Epa/Fish Oil [Fish Oil 1,000 mg Softgel] 2 dose PO DAILY 01/03/25 [History] Vitamin D3/Vitamin K2 (Mk4) [Vitamin K2 Plus D3 Tablet] 1 each PO DAILY 01/03/25 [History] Zinc Gluconate [Zinc] 50 mg PO DAILY 01/03/25 [History] Follow up Appointment(s)/Referral(s): Juani Moran MD [STAFF PHYSICIAN] - 01/25/25 2:00 pm Patient Instructions/Handouts: *Surgery [facility] - (Anesthesia) Discharge Instructions Outpatient Surgery, Esophageal Dilation (DC) Activity/Diet/Wound Care/Special Instructions: Salt water gargle twice a day for 2 days. Discharge Disposition: HOME SELF-CARE
[2025-01-05 09:38] VITALS: BP 112/75; PULSE 66
== END 2025-01-05 10:06 | disposition home or self-care (01) ==
LOC: ORWHC2ENDO 08:13
PROVIDERS: ATTEND Surgery Plastic and Reconstructive Surgery
DX: K21.00 Gastro-esophageal reflux disease with esophagitis, without bleeding (principal); K22.2 Esophageal obstruction; K44.9 Diaphragmatic hernia without obstruction or gangrene; K29.70 Gastritis, unspecified, without bleeding; I10 Essential (primary) hypertension; G47.30 Sleep apnea, unspecified
CPT/HCPCS: 88305; 43239; 43248; J2704; J2003

== ENCOUNTER → 2025-02-08 | Outpatient (CLI) | payer BC ==
--- NOTE | 2025-02-08 09:49 | US ---
EXAMINATION TYPE: US gallbladder DATE OF EXAM: 02/08/2025 COMPARISON: MR pancreas/MRCP 06/09/2024, MR pancreas 12/05/2023, MR MRCP 06/27/2023, CT abdomen and pelvis 06/03/2023 CLINICAL INDICATION: Female, 49 years old with history of R10.11 RIGHT UPPER QUADRANT PAIN; Pt states intermittent RUQ pain TECHNIQUE: Grayscale and color Doppler imaging of the right upper quadrant was performed. FINDINGS: EXAM MEASUREMENTS: Liver Length: 15.5 cm Gallbladder Wall: 0.2 cm CBD: 0.6 cm Right Kidney: 10.4 x 4.8 x 5.1 cm CREAM MAKER NOTES: Pancreas: Tail obscured by overlying bowel gas, Unable to visualize head cyst as followed on MRI Liver: Heterogeneous, vague sold appearing lesion right lateral lobe near dome= 1.5 x 1.4 x 1.7 cm- ? corollate to MRI finding Gallbladder: Small echogenic foci within lumen, one within neck that appears immobile= 0.6 cm Evidence for sonographic Martinez's sign: No CBD: wnl Right Kidney: No evidence of hydro, lower pole gassed out Visualized portions of the pancreas are unremarkable. Unable to visualize pancreatic head cyst from p rior MR. Liver demonstrates heterogenous increased echogenicity without surface nodularity. Vague anton id-appearing lesion within the right lateral hepatic lobe near the dome correlating to prior MRI. Thi s measures grossly 1.5 x 1.4 x 1.7 cm. Cholelithiasis without evidence of wall thickening or surround ing fluid. Negative sonographic Martinez's sign. No hydronephrosis involving the right kidney. No shado wing calculus or solid mass. IMPRESSION: 1. No ultrasound evidence for acute process. 2. Cholelithiasis without ultrasound evidence for acute cholecystitis. 3. Hepatic steatosis with redemonstration of right hepatic lobe mass corresponding to prior MR which was previously favored to be benign. 4. Known pancreatic cystic lesion is not well-visualized. [facility], , 02/08/2025 9:46 AM
== END | disposition home or self-care (01) ==
LOC: RADUSWWP 09:12
PROVIDERS: ATTEND Surgery Plastic and Reconstructive Surgery
DX: K80.20 Calculus of gallbladder without cholecystitis without obstruction (principal); K76.0 Fatty (change of) liver, not elsewhere classified; K86.2 Cyst of pancreas
CPT/HCPCS: 76705

== ENCOUNTER → 2025-02-11 | Outpatient (CLI) | payer BC ==
--- NOTE | 2025-02-11 08:52 | MM ---
Reason for Exam: Screening (asymptomatic). Last mammogram was performed 1 year(s) and 2 month(s) ago. Patient History: Menarche at age 12. First Full-Term at age 19. Patient used Hormonal Contraceptives for 2 years. Risk Values: Vielka 5 year model risk: 0.8%. NCI Lifetime model risk: 7.2%. Prior Study Comparison: 12/24/2021 Bilateral Screening Mammogram, [facility]. 12/25/2022 Bilateral MG 3D screening mammo w/cad, [facility]. 12/30/2023 Bilateral MG 3D screening mammo w/cad, [facility]. Tissue Density: The breasts are heterogeneously dense, which may obscure small masses. Findings: Analyzed By CAD. Right breast: There is no suspicious group of microcalcifications or new suspicious mass. Left breast: There is no suspicious group of microcalcifications or new suspicious mass. Overall Assessment: Negative, BI-RAD 1 Management: Screening Mammogram of both breasts in [address] [facility] will attempt to contact patient to return for supplemental views and ultrasound if indicated. Patient should continue monthly self-breast exams. A clinical breast exam by your physician is recommended on an annual basis. This exam should not preclude additional follow-up of suspicious palpable abnormalities. Note on Vielka scores and lifetime risk: 1. A Vielka score greater than 3% is considered moderate risk. If this is the case, consider specialist referral to assess eligibility for a risk reducing agent. 2. If overall lifetime risk for the development of breast cancer is 20% or higher, the patient may qualify for future screening with alternating mammogram and breast MRI. [facility], , 02/11/2025 8:49 AM. Electronically signed and approved by: Balwinder Rivera DO
== END | disposition home or self-care (01) ==
LOC: RADMAMWWP 08:31
PROVIDERS: ATTEND Family Medicine
DX: Z12.31 Encounter for screening mammogram for malignant neoplasm of breast (principal); R92.333 Mammographic heterogeneous density, bilateral breasts; Z92.0 Personal history of contraception
CPT/HCPCS: 77063; 77067